=== PATIENT | male | born 1965 | race Caucasian/White ===

== ENCOUNTER → 2017-05-16 | Outpatient (CLI) | payer OTHER | LOC: BMCIMAGING 12:20 | PROVIDERS: ATTEND Internal Medicine | DX: R68.83 Chills (without fever) (principal) ==

== ENCOUNTER 2018-03-12 20:17 | Emergency (ER) | payer OTHER ==
[2018-03-12] MEDS ORDERED: predniSONE 20 MG TAB PO ONE (20:34)
--- NOTE | 2018-03-12 20:36 | EDPHY ---
H & P Stated Complaint: asthma attack, SOB Time Seen by Provider: 03/12/18 20:25 HPI/ROS: CHIEF COMPLAINT: Asthma attack HISTORY OF PRESENT ILLNESS: Patient is a 52-year-old man who comes to the emergency department complaining of an asthma attack. He initially presented to the urgent care who referred him here. The patient states that he infrequently has asthma attacks usually seasonal. He has used his inhaler 5 times in the last hour and states he now feels much better although he is slightly jittery. No chest pain or tightness. No recent fevers or infections or illness. He states that this is consistent with previous asthma exacerbations. REVIEW OF SYSTEMS: Constitutional: denies: chills, fever, recent illness, recent injury EENTM: denies: blurred vision, double vision, nose congestion Respiratory: See HPI Cardiac: denies: chest pain, irregular heart rate, lightheadedness, palpitations Gastrointestinal/Abdominal: denies: abdominal pain, diarrhea, nausea, vomiting, blood streaked stools Genitourinary: denies: dysuria, frequency, hematuria, pain Musculoskeletal: denies: joint pain, muscle pain Skin: denies: lesions, rash, jaundice, bruising Neurological: denies: headache, numbness, paresthesia, tingling, dizziness, weakness Hematologic/Lymphatic: denies: blood clots, easy bleeding, easy bruising Immunologic/allergic: denies: HIV/AIDS, transplant EXAM: GENERAL: Well-appearing, well-nourished and in no acute distress. HEAD: Atraumatic, normocephalic. EYES: Pupils equal round and reactive to light, extraocular movements intact, sclera anicteric, conjunctiva are normal. ENT: TMs normal, nares patent, oropharynx clear without exudates. Moist mucous membranes. NECK: Normal range of motion, supple without lymphadenopathy or JVD. LUNGS: Breath sounds clear to auscultation bilaterally and equal. No wheezes rales or rhonchi. HEART: Regular rate and rhythm without murmurs, rubs or gallops. ABDOMEN: Soft, nontender, normoactive bowel sounds. No guarding, no rebound. No masses appreciated. BACK: No CVA tenderness, no spinal tenderness, step-offs or deformities EXTREMITIES: Normal range of motion, no pitting or edema. No clubbing or cyanosis. NEUROLOGICAL: Cranial nerves II through XII grossly intact. Normal speech, normal gait. 5/5 strength, normal movement in all extremities, normal sensation PSYCH: Normal mood, normal affect. SKIN: Warm, dry, normal turgor, no visible rashes or lesions. Source: Patient, Family Exam Limitations: No limitations - Personal History Current Tetanus/Diphtheria Vaccine: Yes Current Tetanus Diphtheria and Acellular Pertussis (TDAP): Yes - Medical/Surgical History Hx Asthma: Yes Hx Chronic Respiratory Disease: No Hx Diabetes: No Hx Cardiac Disease: No Hx Renal Disease: No Hx Cirrhosis: No Hx Alcoholism: No Hx HIV/AIDS: No Hx Splenectomy or Spleen Trauma: No Other PMH: asthma, back surgery - Family History Significant Family History: No pertinent family hx - Social History Smoking Status: Never smoked Alcohol Use: Sober Drug Use: None Constitutional: Initial Vital Signs Temperature (C) 36.7 C 03/12/18 20:20 Heart Rate 73 03/12/18 20:20 Respiratory Rate 16 03/12/18 20:20 Blood Pressure 128/81 H 03/12/18 20:20 O2 Sat (%) 95 03/12/18 20:20 O2 Delivery Mode Room Air Allergies/Adverse Reactions: No Known Allergies Allergy (Unverified 03/12/18 20:22) Home Medications: Medication Instructions Recorded Albuterol Hfa Anes Only 03/12/18 predniSONE 60 mg PO DAILY #15 tab 03/12/18 Medical Decision Making - Diagnostics EKG Interpretation: An EKG obtained and was read and documented in trace view. Please see trace view for full reading and report. Sinus bradycardia, no acute ischemic changes ED Course/Re-evaluation: 9:15 p.m. the patient is feeling completely better. He is eager to go home. He declines further workup or testing at this time. Differential Diagnosis: Partial list of the Differential diagnosis considered include but were not limited to; asthma exacerbation, acute coronary disease and although unlikely based on the history and physical exam, I also considered arrhythmia, PE. I discussed these differential diagnoses and the plan with the patient as well as the usual and expected course. The patient understands that the diagnosis is provisional and that in medicine we are not always correct and that further workup is often warranted. Usual and customary warnings were given. All of the patient's questions were answered. The patient was instructed to return to the emergency department should the symptoms at all worsen or return, otherwise to followup with the physician as we discussed. - Data Points Medications Given: Discontinued Medications Prednisone (Prednisone) 60 mg PO EDNOW ONE Stop: 03/12/18 20:35 Last Admin: 03/12/18 20:40 Dose: 60 mg Departure - Departure Disposition: Home, Routine, Self-Care Clinical Impression: Exacerbation of asthma Condition: Fair Instructions: Asthma (ED) Referrals: NONE *PRIMARY CARE P,. [Primary Care Provider] - 2-3 days, if not improved Prescriptions: predniSONE 60 mg PO DAILY #15 tab
--- NOTE | 2018-03-12 20:37 | CPEKG ---
Heart Rate: 51 RR Interval: 1176 P-R Interval: 192 QRSD Interval: 86 QT Interval: 424 QTC Interval: 391 P [place]: 58 QRS [place]: -59 T Wave [place]: 45 EKG Severity - ABNORMAL ECG - EKG Impression: SINUS RHYTHM EKG Impression: LAD, CONSIDER LEFT ANTERIOR FASCICULAR BLOCK Electronically Signed By: Ch[place] Dinero 12-Mar-2018 20:39:14
[2018-03-12 21:30] VITALS: BP 103/77
== END 2018-03-12 21:29 | disposition home or self-care (01) ==
DX: J45.901 Unspecified asthma with (acute) exacerbation (principal)
CPT/HCPCS: J7512